=== PATIENT | male | born 1965 | race Asian ===

== ENCOUNTER 2016-08-17 13:20 | Emergency (ER) | payer BC ==
[~2016-08-17] VITALS: Ht 167.6 cm; Wt 58.5 kg
[2016-08-17 15:31] VITALS: BP 118/64
== END 2016-08-17 15:31 | disposition home or self-care (01) ==
LOC: ED 13:20
DX: R04.0 Epistaxis (principal); Z79.899 Other long term (current) drug therapy

== ENCOUNTER 2020-05-10 07:14 | Emergency (ER) | payer OTHER ==
[~2020-05-10] VITALS: Ht 165.1 cm; Wt 59.0 kg
[2020-05-10 07:17] VITALS: Ht 165.1 cm; Wt 59.0 kg
[2020-05-10 08:19] LABS: CALCIUM 9.6 mg/dL (8.5-10.1); CARBON DIOXIDE 31.3 mmol/L (21-32); CHLORIDE SERUM 103 mmol/L (98-107); CREATININE SERUM 1.2 mg/dL (0.7-1.3); GFR1 > 60 mL/min; GLUCOSE SERUM 164 mg/dL (74-106); POTASSIUM SERUM 4.1 mmol/L (3.5-5.1); SODIUM SERUM 141 mmol/L (136-145)
[2020-05-10 08:23] LABS: ALBUMIN 3.5 g/dL (3.4-5.0); ALKALINE PHOSPHATASE 62 U/L (46-116); ALT/SGPT 28 U/L (16-63); AST/SGOT 26 U/L (15-37); BILIRUBIN TOTAL 0.34 mg/dL (0.20-1.00); LIPASE 77 IU/L (73-393); TOTAL PROTEIN, SERUM 8.2 g/dL (6.4-8.2)
[2020-05-10 08:43] LABS: PLATELET COUNT 966 x10^3mcL (152-348); RED CELL DISTRIBUTION WIDTH 17.2 % (12.1-16.2)
[2020-05-10 08:44] LABS: BASOPHIL % 0 % (0.2-1.5)
[2020-05-10 10:43] LABS: rbc morphology (normal/abnorm) ABNORMAL (NORMAL)
[2020-05-10 12:45] VITALS: BP 140/49
== END 2020-05-10 12:45 | disposition home or self-care (01) ==
LOC: ED 07:14
PROVIDERS: Specialist
DX: B34.9 Viral infection, unspecified (principal); R09.1 Pleurisy; E78.00 Pure hypercholesterolemia, unspecified; Z20.828 Contact with and (suspected) exposure to other viral communicable diseases
CPT/HCPCS: 83880; 85378; J1885; J7030; Q9967

== ENCOUNTER 2020-05-16 15:59 | Emergency (ER) | payer OTHER, SELFPAY ==
[~2020-05-16] VITALS: Ht 165.1 cm; Wt 59.9 kg
[2020-05-16 16:01] VITALS: Ht 165.1 cm; Wt 59.9 kg
[2020-05-16 16:58] LABS: CARBON DIOXIDE 26.3 mmol/L (21-32); CREATININE SERUM 1.4 mg/dL (0.7-1.3); POTASSIUM SERUM 4.4 mmol/L (3.5-5.1)
[2020-05-16 16:59] LABS: RED CELL DISTRIBUTION WIDTH 17.6 % (12.1-16.2)
[2020-05-16 17:01] LABS: PLATELET COUNT 794 x10^3mcL (152-348)
[2020-05-16 17:14] LABS: BAND NEUTROPHIL 1 % (0-10); BASOPHIL 0 % (0-2); MONOCYTE 7 % (0-7); SEGMENTED NEUTROPHILS 83 % (37-75); rbc morphology (normal/abnorm) ABNORMAL (NORMAL)
[2020-05-16 17:15] LABS: ovalocyte/elliptocyte 1+
[2020-05-16 17:17] LABS: BILIRUBIN TOTAL 0.3 mg/dL (0.20-1.00); TOTAL PROTEIN, SERUM 7.8 g/dL (6.4-8.2)
[2020-05-16 17:54] LABS: UA SPECIFIC GRAVITY 1.025 (1.005-1.035); microscopic required? YES; urine erythrocyte NEGATIVE (NEGATIVE)
[2020-05-16 22:00] VITALS: BP 139/84
== END 2020-05-16 22:00 | disposition home or self-care (01) ==
LOC: ED 15:59
PROVIDERS: Emergency Medicine
DX: R50.9 Fever, unspecified (principal); M79.10 Myalgia, unspecified site; R53.1 Weakness; E78.00 Pure hypercholesterolemia, unspecified; R07.89 Other chest pain; R06.02 Shortness of breath; Z20.822 Contact with and (suspected) exposure to COVID-19
CPT/HCPCS: 36600; 83880; 85378; 87804; J7030; M0239; Q0239; U0003

== ENCOUNTER 2020-05-18 12:09 | Emergency (ER) | payer OTHER ==
[~2020-05-18] VITALS: Ht 165.1 cm; Wt 59.9 kg
[2020-05-18 12:13] VITALS: Ht 165.1 cm; Wt 59.9 kg
[2020-05-18 13:27] LABS: PLATELET COUNT 521 x10^3mcL (152-348); RED CELL DISTRIBUTION WIDTH 17.2 % (12.1-16.2)
[2020-05-18 14:02] LABS: MONOCYTE 8 % (0-7)
[2020-05-18 14:03] LABS: BAND NEUTROPHIL 1 % (0-10); SEGMENTED NEUTROPHILS 82 % (37-75); rbc morphology (normal/abnorm) ABNORMAL (NORMAL)
[2020-05-18 14:04] LABS: ovalocyte/elliptocyte 1+; schistocyte (helmet cell) 1+; tear drop cell (dacryocyte) 1+
[2020-05-18 14:05] LABS: PLATELET MORPHOLOGY PLATELETS INCREASED
[2020-05-18 14:39] LABS: CALCIUM 9.1 mg/dL (8.5-10.1); CARBON DIOXIDE 26.6 mmol/L (21-32); CHLORIDE SERUM 99 mmol/L (98-107); CREATININE SERUM 1.3 mg/dL (0.7-1.3); GFR1 > 60 mL/min; GLUCOSE SERUM 125 mg/dL (74-106); POTASSIUM SERUM 4.5 mmol/L (3.5-5.1); SODIUM SERUM 135 mmol/L (136-145)
[2020-05-18 14:44] LABS: ALKALINE PHOSPHATASE 97 U/L (46-116); ALT/SGPT 34 U/L (16-63); AST/SGOT 63 U/L (15-37); BILIRUBIN TOTAL 0.3 mg/dL (0.20-1.00); TOTAL PROTEIN, SERUM 7.7 g/dL (6.4-8.2)
[2020-05-18 14:46] LABS: ALBUMIN 2.7 g/dL (3.4-5.0)
[2020-05-18 16:11] VITALS: BP 144/79
== END 2020-05-18 16:05 | disposition home or self-care (01) ==
LOC: ED 12:09
PROVIDERS: Student in an Organized Health Care Education/Training Program
DX: U07.1 COVID-19 (principal); D64.9 Anemia, unspecified; E78.00 Pure hypercholesterolemia, unspecified; F17.210 Nicotine dependence, cigarettes, uncomplicated

== ENCOUNTER 2020-05-21 14:12 | Inpatient (IN) | payer OTHER, SELFPAY ==
[~2020-05-21] VITALS: Ht 165.1 cm; Wt 64.9 kg
[2020-05-21 14:30] VITALS: Ht 165.1 cm; Wt 64.9 kg
[2020-05-21 15:40] LABS: PLATELET COUNT 287 x10^3mcL (152-348)
[2020-05-21 16:02] LABS: CALCIUM 9.2 mg/dL (8.5-10.1); CARBON DIOXIDE 30.3 mmol/L (21-32); CHLORIDE SERUM 96 mmol/L (98-107); GFR1 > 60 mL/min; GLUCOSE SERUM 140 mg/dL (74-106); POTASSIUM SERUM 4.3 mmol/L (3.5-5.1); SODIUM SERUM 136 mmol/L (136-145)
[2020-05-21 16:04] LABS: RED CELL DISTRIBUTION WIDTH 17.5 % (12.1-16.2)
[2020-05-21 16:06] LABS: ALKALINE PHOSPHATASE 190 U/L (46-116); ALT/SGPT 46 U/L (16-63); AST/SGOT 67 U/L (15-37); BILIRUBIN TOTAL 0.3 mg/dL (0.20-1.00); LIPASE 61 IU/L (73-393); TOTAL PROTEIN, SERUM 6.8 g/dL (6.4-8.2)
[2020-05-21 16:12] LABS: ALBUMIN 2.1 g/dL (3.4-5.0)
[2020-05-21 16:36] LABS: BAND NEUTROPHIL 8 % (0-10); METAMYELOCTE 9 % (0-2); MONOCYTE 10 % (0-7); MYELOCYTE 3 % (0-2); SEGMENTED NEUTROPHILS 65 % (37-75)
[2020-05-21 16:39] LABS: rbc morphology (normal/abnorm) ABNORMAL (NORMAL)
[2020-05-21 16:40] LABS: tear drop cell (dacryocyte) 1+
[2020-05-21 16:41] LABS: PLATELET MORPHOLOGY LARGE PLATELET SEEN
--- NOTE | 2020-05-21 16:56 | NUR ---
PT RESTING IN BED, AAOX4 WITH C/O 5/10 BODY PAIN WITH INTERMITTANT FEVER X 2 WEEKS. PT DENIES ANY N/V/D/C, RESP ILLNESS OR URINARY PROBLEMS AT THIS TIME. PT PLACED ON MONITOR WITH NO SIGNS OF DISTRESS. PT STATES MULTIPLE VISITS TO ER/PCP FOR TREATMENT OF HIS COVID SYMPTOMS WITH NO RELIEF OF SYMPTOMS. PT STATES "I AM FEELING WORSE". VS WNL.
[2020-05-21 17:30] LABS: microscopic required? NO
[2020-05-21 17:35] LABS: UA SPECIFIC GRAVITY 1.025 (1.005-1.035); urine erythrocyte NEGATIVE (NEGATIVE)
--- NOTE | 2020-05-21 19:55 | NUR ---
PT LAYING SUPINE IN GURNEY IN A POSITION OF COMFORT. PT AAO X4 RESPIRATIONS E/U NO DISTRESS NOTED. WILL CONTINUE TO MONITOR.
[2020-05-21] MEDS ORDERED: SIKLOS100 MG PO (20:08)
[2020-05-21] MEDS ORDERED: LIPITOR10 MG PO (20:09)
[2020-05-21] MEDS ORDERED: ASPIRIN FOR CHI81 M1 PO (20:09)
--- NOTE | 2020-05-21 21:21 | NUR ---
GAVE REPORT TO AMBER SCHROEDER TO ASSUME CARE OF PT.
[2020-05-21 22:35] VITALS: BP 112/79
--- NOTE | 2020-05-21 22:56 | NUR ---
RECEIVED PT FROM ER, PT ADMIT FOR DEHYDRATION. ANEMIA, CHEST PAIN, COVID PUI PT IS A/O X4, VERBAL RESPONSIVE. LUNG SOUND CLEAR BILATERAL, NO COUGH, PO2 95% IN ROOM AIR BUT PT C/O SOB WHILE AMBULATED. PT IS ON TELE 4, ST, C/O CHEST PAIN 6/10, INCREASE PAIN WHILE DEEP BREATH. BOWEL SOUND PRESENT ALL 4 QUADRANTS, NO DISTENTION, NO TENDER. PEDAL PULSE PRESENT BOTH FEET, NO EDEMA, IV AT RIGHT AC, NO LEAKING, NO INFILTRATION. ALL ADLS ASSIST, ALL NEED MET, CALL LIGHT IN REACH, WILL CONTINUE TO MONITOR.
--- NOTE | 2020-05-21 22:58 | NUR ---
PT. WITH FEVER OF 101.3. COOLING MEASURES INTIATED. PRN TYLENOL GIVEN. WILL MONITOR.
--- NOTE | 2020-05-22 00:50 | NUR ---
PT. RESTING QUIETLY, EYES CLOSED. APPEARS TO BE DOZING. TEMPT DOWN TO 100.2 PT. REMAINS TACHYCARDIC, 109. NO RESP. DISTRESS, ON RA. WILL CONTINUE TO MONITOR.
--- NOTE | 2020-05-22 04:44 | NUR ---
PT. C/O GENERALIZED BODY PAIN. STATED THAT THE PAIN IS VERY BAD ALL OVER. THAT HE CANNOT MOVE. HIS MUSCLES HURT REALLY. BAD. IPMG PAGED. AWAITING CALL BACK.
--- NOTE | 2020-05-22 05:16 | NUR ---
SPOKE WITH PATIENT, GAVE HIM OPTION TO TAKE PAIN PILL NOW OR WAIT FOR DOCTOR'S RETURN CALL. PATIENT STATED THAT HE CANNOT WAIT ANY LONGER AND IN TOO MUCH PAIN. HE WILL TAKE THE PILL.
[2020-05-22 05:25] VITALS: BP 161/79
--- NOTE | 2020-05-22 06:54 | NUR ---
PATIENT WITH EYES CLOSED. APPEARS MORE COMFORTABLE. NO RETURN CALL FROM DOCTOR BLOGS MANAGER FROM [facility]. WILL ENDORSE PATIENT CARE TO INCOMING NURSE.
[2020-05-22 07:09] LABS: PLATELET COUNT 198 x10^3mcL (152-348)
[2020-05-22 07:11] LABS: RED CELL DISTRIBUTION WIDTH 17.9 % (12.1-16.2)
--- NOTE | 2020-05-22 07:30 | NUR ---
RECEIVED REPORT FROM CLINICAL CYTOGENETICIST NURSE. PT IS A/OX4. TELE #4, ST. BP ELEVATED 161/79. PT C/O SEVERE 10/10 PAIN IN HIS LOWER BACK. NORCO WAS GIVEN BUT DID NOT RELEIVE THE PAIN. DR DODGE WAS PAGED. AWAITING FOR CALL BACK. IV TO RH, PATENT, SL. LUNG SOUNDS CLEAR, O2 SAT 92%RA. ALL PROTOCOLS IN PLACE. WILL CONTINUE TO MONITOR.
[2020-05-22 08:05] LABS: CALCIUM 8.2 mg/dL (8.5-10.1); CARBON DIOXIDE 29.7 mmol/L (21-32); CHLORIDE SERUM 100 mmol/L (98-107); GFR1 > 60 mL/min; GLUCOSE SERUM 124 mg/dL (74-106); MAGNESIUM 1.9 mg/dL (1.8-2.4); SODIUM SERUM 135 mmol/L (136-145); TRIGLYCERIDES 188 mg/dL (<150)
[2020-05-22 08:06] LABS: CHOLESTEROL 110 mg/dL (<200); CHOLESTEROL/HDL RATIO 7.3; HDL CHOLESTEROL 15 mg/dL (40-60)
--- NOTE | 2020-05-22 08:10 | NUR ---
MADE DR COBURN AWARE ABOUT PT'S LOWER BACK PAIN 01/14 WHICH WAS NOT RELIEVED BY NORCO. TEMP ELEVATION, ELEVATED BP 161/79, HR 116. DR COBURN ORDERED ZOSYN IV PER EMAR, INFECTIOUS DISEASE CONSULT, MORPHINE 2MG IVP Q4HR PRN PER EMAR AND BLOOD OCCULT STOOL SAMPLE.
[2020-05-22 08:26] VITALS: BP 131/77
--- NOTE | 2020-05-22 09:16 | NUR ---
HELD HYDROXYUREA FOR NOW. PT STATES THAT HIS ONCOLOGY DOCTOR HELD MEDICATION FOR NOW. IS AWARE.
--- NOTE | 2020-05-22 09:46 | NUR ---
TEMP IS 98.9 AND BP 131/77, HR 104 PER GRAPH. PT REPORTS REDUSED PAIN AFTER MORPHINE 2MG IVP ADMINISTRATION PER EMAR. PT IS LYING COMFORTABLY IN BED. INSTRUCTED TO CALL AFTER BM TO COLLECT STOOL SAMPLE FOR LAB. WILL CONTINUE TO MONITOR.
[2020-05-22 11:35] LABS: BAND NEUTROPHIL 13 % (0-10); BASOPHIL 0 % (0-2); METAMYELOCTE 2 % (0-2); MONOCYTE 10 % (0-7); SEGMENTED NEUTROPHILS 64 % (37-75)
[2020-05-22 11:36] LABS: PLATELET MORPHOLOGY PLATELETS NORMAL; ovalocyte/elliptocyte 1+; rbc morphology (normal/abnorm) ABNORMAL (NORMAL); tear drop cell (dacryocyte) 1+
[2020-05-22 12:39] VITALS: BP 150/82; BP 166/93
--- NOTE | 2020-05-22 12:45 | NUR ---
SPOKE TO DR COBURN AND UPDATED ON INCREASING TEMP AND ELEVATED BP. RECEIVED VERBAL ORDER TO GIVE 1000ML OF NS AT 75ML/HR ONCE AND CONTINUE TO MONITOR BP. PER DR COBURN, WILL D/C HYDROXYUREA.
--- NOTE | 2020-05-22 13:27 | NUR ---
MADE DR COBURN AWARE ABOUT ORDER TO D/C IV NS 1000ML. PER DR COBURN, IS OK TO GIVE 1L OF NS ONCE.
--- NOTE | 2020-05-22 14:05 | NUR ---
RECEIVED VERBAL ORDER FROM DR COBURN TO D/C HYDROXYUREA.
[2020-05-22 17:01] VITALS: BP 161/82
--- NOTE | 2020-05-22 17:59 | NUR ---
PT IS A/OX4. TELE #4 ST/NSR W/ELEVATED T WAVE. DENIES CP AT THIS TIME. PT RECEIVED A DOSE OF MORPHINE 2MG IVP PER EMAR FOR SEVERE PAIN IN HIS NECK AND LOWER BACK. PT REPORTS HAVING CHRONIC MODERATE PAIN FOR WHICH HE TAKES IBOPROFEN AT HOME. PT HAD ELEVATED TEMPERATURE TODAY. TYLENOL GIVEN PER EMAR. STARTED ON ANTIBIOTIC: ZOSYN PER EMAR AND ONE DOSE OF NS 1L RUNNING AT 75ML/HR. IV TO RFA. RECEIVED TRANSFER ORDER. AWAITING FOR PLACEMENT (HOSPITAL ADDRESS). ALL PROTOCOLS IN PLACE. WILL ENDORSE CARE TO ONCOMING NURSE.
--- NOTE | 2020-05-22 18:46 | NUR ---
STOOL SAMPLE FOR OCCULT BLOOD COLLECTED AND SENT TO LAB.
--- NOTE | 2020-05-22 19:51 | NUR ---
RECEIVED PT FROM DAY RN. PT BE[facility] ROOM 204. ROXANNE FROM [facility]NA[facility] CALLED FOR ARRANGEMENT AND CONFIRMATION OF D/C PLANNING. PT ALERT X4, FOUND SITTING ON EDGE OF BED AND PLEASANT. PT ON RA ON COVID ISOLATION, NO DISTRESS. LUNG SOUNDS DIMINISHED BILATERALLY. PT STATES HE HAS SOME L SIDE PAIN AT THIS TIME BUT IS NOT NEEDING PAIN MEDICATION. NO EDEMA NOTED AND PULSES PRESENT IN BUE AND BLE. BOWEL SOUNDS NORMOACTIVE X4. PT USES URINAL AND STATES HE DOES EXPERIENCE WEAKNESS AND SOME SOB WITH AMBULATION. KNOWS TO CALL FOR ASSISTANCE. SKIN INTACT. WILL CONTINUE TO MONITOR AT THIS TIME AND PREPARE FOR TRANSFER. PHONE NUMBER FOR REPORT IS [phone]. ALL NEEDS MET, CALL LIGHT IN REACH, BED LOW AND LOCKED
--- NOTE | 2020-05-22 20:28 | NUR ---
INFORMED DR. BRANNON FROM [facility] THAT PT IS BEING TRANSFERRED TO [facility].
--- NOTE | 2020-05-22 20:34 | NUR ---
CALLED [facility] TO GIVE REPORT. NURSE CURRENTLY BUSY, LEFT CALL BACK NUMBER FOR [facility]OPS[facility] FLOOR WITH TUMBLER MACHINE OPERATOR AT THIS TIME. NUMBER FOR [facility] [phone]
[2020-05-22 20:46] VITALS: BP 158/73
--- NOTE | 2020-05-22 21:29 | NUR ---
REPORT GIVEN TO NIK AT [facility]. TRANSFER CONSENT SIGNED AND PALCED IN PT CHART. [facility] GIVEN REPORT AND PT TRANSFERRED OUT OF FACILITY BY [facility] AT 2125. PT ABLE TO AMBULATE TO [facility], LEADS REMOVED, AND ID BAND TAKE OFF. VITALS REMAINED STABLE ON RA AT 96% AND HR 105. ALL NEEDS MET, NO SOB NOTED BY PATIENT. CHARGE AWARE OF TRANSFER AND UPDATED ON PLAN OF CARE.
== END 2020-05-22 21:24 | disposition short-term general hospital (02) | DRG 872 ==
LOC: ED 14:12 → DU 19:59
PROVIDERS: Emergency Medicine; ADMIT Hospitalist; ATTEND Hospitalist
DX: A41.9 Sepsis, unspecified organism (principal); E78.00 Pure hypercholesterolemia, unspecified; D64.9 Anemia, unspecified; Z20.822 Contact with and (suspected) exposure to COVID-19; R07.9 Chest pain, unspecified; Z87.891 Personal history of nicotine dependence; Z86.16 Personal history of COVID-19
CPT/HCPCS: G0378; J1885; J2270; J2543; J7030; J7050; U0003

== ENCOUNTER 2020-06-16 05:44 | Inpatient (IN) | payer OTHER, SELFPAY ==
[2020-06-16] VITALS (7 sets, daily range): BP systolic 68–112; BP diastolic 39–73; Ht 172.7 cm; Wt 59.9 kg
[~2020-06-16] VITALS: Ht 172.7 cm; Wt 59.9 kg
[~2020-06-16 05:44] MED LIST: ASPIRIN FOR CHI81 M1 PO; LIPITOR10 MG PO; SIKLOS100 MG PO
[2020-06-16 08:45] LABS: BILIRUBIN TOTAL 0.29 mg/dL (0.20-1.00); CREATININE SERUM 2.8 mg/dL (0.7-1.3)
[2020-06-16 09:09] LABS: ALBUMIN 1.7 g/dL (3.4-5.0)
[2020-06-16 09:10] LABS: CARBON DIOXIDE 7.4 mmol/L (21-32); POTASSIUM SERUM 7.2 mmol/L (3.5-5.1)
[2020-06-16] MEDS ORDERED: CELEBREX50 M1 PO (09:33)
[2020-06-16] MEDS ORDERED: APAP EXTRA STR500 MG PO ×2 (09:34)
[2020-06-16 09:46] LABS: PLATELET COUNT 166 x10^3mcL (152-348)
[2020-06-16 09:47] LABS: C REACTIVE PROTEIN 27.5 mg/dL (<=0.9)
[2020-06-16 13:08] LABS: BAND NEUTROPHIL 3 % (0-10); BLAST 56 % (0); MONOCYTE 3 % (0-7); SEGMENTED NEUTROPHILS 24 % (37-75)
[2020-06-16 13:09] LABS: MYELOCYTE 5 % (0-2); burr cell (echinocyte) 1+; ovalocyte/elliptocyte 1+; rbc morphology (normal/abnorm) ABNORMAL (NORMAL); schistocyte (helmet cell) 1+
[2020-06-16 13:10] LABS: PLATELET MORPHOLOGY PLATELETS NORMAL
[2020-06-16 16:49] LABS: CALCIUM 7.8 mg/dL (8.5-10.1); CREATININE SERUM 2.8 mg/dL (0.7-1.3); URIC ACID 19.7 mg/dL (3.5-7.2)
[2020-06-16 17:03] LABS: POTASSIUM SERUM 7.3 mmol/L (3.5-5.1)
[2020-06-16 18:32] LABS: CALCIUM 7.2 mg/dL (8.5-10.1); CARBON DIOXIDE 14.4 mmol/L (21-32); CREATININE SERUM 3.2 mg/dL (0.7-1.3)
[2020-06-16 18:40] LABS: POTASSIUM SERUM 6.7 mmol/L (3.5-5.1)
[2020-06-16 20:50] LABS: CARBON DIOXIDE 14.5 mmol/L (21-32); CREATININE SERUM 3.4 mg/dL (0.7-1.3)
[2020-06-16 20:53] LABS: POTASSIUM SERUM 7.1 mmol/L (3.5-5.1)
[2020-06-17] VITALS: BP 95/36
[2020-06-17 00:16] VITALS: BP 94/38
[2020-06-17 01:20] LABS: CALCIUM 6.8 mg/dL (8.5-10.1); CARBON DIOXIDE 15.9 mmol/L (21-32)
[2020-06-17 01:33] LABS: CREATININE SERUM 3.8 mg/dL (0.7-1.3)
[2020-06-17 01:34] LABS: POTASSIUM SERUM 7.4 mmol/L (3.5-5.1)
[2020-06-17 02:18] VITALS: BP 99/42
[2020-06-17 03:58] VITALS: BP 106/37
[2020-06-17 04:00] VITALS: BP 106/37
[2020-06-17 05:42] VITALS: BP 88/37
[2020-06-17 06:17] LABS: ALKALINE PHOSPHATASE 386 U/L (46-116); BILIRUBIN TOTAL 0.7 mg/dL (0.20-1.00); CALCIUM 6.7 mg/dL (8.5-10.1); CARBON DIOXIDE 14.3 mmol/L (21-32); CHLORIDE SERUM 94 mmol/L (98-107); CREATININE SERUM 3.9 mg/dL (0.7-1.3); GFR1 17 mL/min; GLUCOSE SERUM 173 mg/dL (74-106); MAGNESIUM 3.6 mg/dL (1.8-2.4); SODIUM SERUM 134 mmol/L (136-145)
[2020-06-17 07:15] LABS: POTASSIUM SERUM 8.1 mmol/L (3.5-5.1)
[2020-06-17 07:19] LABS: TOTAL PROTEIN, SERUM 4.4 g/dL (6.4-8.2)
[2020-06-17 08:30] LABS: BAND NEUTROPHIL 4 % (0-10); MONOCYTE 16 % (0-7); PLATELET MORPHOLOGY PLATELETS DECREASED; SEGMENTED NEUTROPHILS 40 % (37-75); rbc morphology (normal/abnorm) ABNORMAL (NORMAL)
[2020-06-17 08:35] LABS: PLATELET COUNT 51 x10^3mcL (152-348)
== END 2020-06-17 06:48 | DRG 871 ==
LOC: ED 05:44 → IC 09:41
PROVIDERS: Emergency Medicine; Internal Medicine; Internal Medicine Pulmonary Disease; ADMIT Hospitalist; ATTEND Emergency Medicine
PROC: 5A1935Z Respiratory Ventilation, Less than 24 Consecutive Hours (ICD-10-PCS; principal; 2020-06-16)
PROC: 0BH17EZ Insertion of Endotracheal Airway into Trachea, Via Natural or Artificial Opening (ICD-10-PCS; 2020-06-16)
PROC: 30233N1 Transfusion of Nonautologous Red Blood Cells into Peripheral Vein, Percutaneous Approach (ICD-10-PCS; 2020-06-16)
PROC: 5A12012 Performance of Cardiac Output, Single, Manual (ICD-10-PCS; 2020-06-17)
DX: A41.9 Sepsis, unspecified organism (principal); J96.01 Acute respiratory failure with hypoxia; R65.21 Severe sepsis with septic shock; J18.9 Pneumonia, unspecified organism; E88.3 Tumor lysis syndrome; N17.9 Acute kidney failure, unspecified; Z20.822 Contact with and (suspected) exposure to COVID-19; E78.5 Hyperlipidemia, unspecified; D64.9 Anemia, unspecified; E87.5 Hyperkalemia; I46.9 Cardiac arrest, cause unspecified
CPT/HCPCS: 36600; 82962; 83880; 85060; 85378; 87804; A4628; G0378; J0171; J0456; J0610; J0696; J1720; J1815; J1940; J2250; J2370; J2405; J3370; J3490; J7030; J7060; P9016; P9047; U0003